=== PATIENT | female | born 1940 | race Caucasian/White ===

== ENCOUNTER 2019-08-02 04:21 | Inpatient (IN) | payer MEDICARE, OTHER ==
[~2019-08-02] VITALS: Ht 152.4 cm; Wt 66.3 kg
[~2019-08-02 04:21] MED LIST: ASPI-630 PO; BALS750C PO; CARV25TA2 PO; DOCU100C28 PO; LISI-334 PO; MULT1TAB52 PO; RANI150C PO; SIMV40TA18 PO
[2019-08-02 06:09] VITALS: BP 103/73
[2019-08-02] MEDS ORDERED: CARV6.2511 PO (06:30)
[2019-08-02] MEDS ORDERED: ACET325T9 PO (06:30)
[2019-08-02] MEDS ORDERED: guaiFENesin/CODEINE 100mg/10mg 5 ML LIQUID PO PRN (06:30)
[2019-08-02] MEDS ORDERED: FLUT16SP NS (06:30)
[2019-08-02] MEDS ORDERED: ENOX40DI SQ (06:30)
[2019-08-02] MEDS ORDERED: ASPI81TA59 PO (06:30)
[2019-08-02] MEDS ORDERED: ACETAMINOPHEN 325 MG TABLET. PO PRN (06:30)
[2019-08-02] MEDS ORDERED: MULT1TAB52 PO (06:30)
[2019-08-02] MEDS ORDERED: CETI10TA16 PO (06:30)
[2019-08-02] MEDS ORDERED: GUAI473L15 PO (06:30)
[2019-08-02] MEDS ORDERED: FAMO20TA5 PO (06:30)
--- NOTE | 2019-08-02 06:38 | EKG ---
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
--- NOTE | 2019-08-02 06:41 | NUR ---
Patient arrived at 0555 VIA ambulance. Orders received from [facility]. Reviewed patient medications.
[2019-08-02] MEDS ORDERED: ONDANSETRON PF 4 MG/2 ML VIAL. IVP PRN (06:45)
[2019-08-02] MEDS ORDERED: guaiFENesin DM 200MG/20MG 10 ML SYRUP PO PRN (07:00)
[2019-08-02 07:26] LABS: BASO % 0 % (0-3); EOS % 0 % (0-3); HEMATOCRIT 36.4 % (36.0-47.0); HEMOGLOBIN 12.5 g/dL (12.0-15.5); LYMPH # 0.9 x10^3/uL (1.0-4.8); LYMPH % 21 % (24-48); MEAN CORPUSCULAR HEMOGLOBIN 31 pg (25-35); MEAN CORPUSCULAR HGB CONC 34 g/dL (31-37); MEAN CORPUSCULAR VOLUME 91 fL (79-100); MONO # 0.5 x10^3/uL (0.0-1.1); MONO % 12 % (0-9); NEUT # 2.7 x10^3/uL (1.8-7.7); NEUT % 66 % (31-73); PLATELET COUNT 151 x10^3/uL (140-400); RED BLOOD COUNT 3.99 x10^6/uL (3.50-5.40); RED CELL DISTRIBUTION WIDTH 13.8 % (11.5-14.5); WHITE BLOOD COUNT 4.1 x10^3/uL (4.0-11.0)
[2019-08-02 07:36] LABS: CALCIUM 8.7 mg/dL (8.5-10.1); CREATININE 1.1 mg/dL (0.6-1.0); GFR 47.9; POTASSIUM 4.4 mmol/L (3.5-5.1)
[2019-08-02 07:51] VITALS: BP 100/65
[2019-08-02] MEDS ORDERED: CARVEDILOL 6.25 MG TABLET. PO SCH (08:00)
[2019-08-02] MEDS ORDERED: ASPIRIN CHEWABLE 81 MG TABLET. PO SCH ×2 (08:00→09:00)
[2019-08-02] MEDS ORDERED: ENOXAPARIN 40 MG/0.4 ML SYRINGE. SQ SCH (09:00)
[2019-08-02] MEDS ORDERED: FUROSEMIDE 20 MG/2 ML VIAL. IVP SCH (09:00)
[2019-08-02] MEDS ORDERED: HEPARIN 25,000UTS/500ML PREMIX 500 ML IV PRN (09:30)
[2019-08-02] MEDS ORDERED: HEPARIN for IV BOLUS 10,000 UNIT/10 ML VIAL. IV PRN (09:30)
--- NOTE | 2019-08-02 09:33 | PDOC2 ---
EDOUARD PERES BRANCH SERVICE ASSOCIATE 08/02/19 0933: CARDIAC CONSULT DATE OF CONSULT Date of Consult DATE: 08/02/19 TIME: 08:58 REASON FOR CONSULT Reason for Consult: Young REFERRING PHYSICIAN Referring Physician: Francisco SOURCE Source: Chart review, Patient HISTORY OF PRESENT ILLNESS HISTORY OF PRESENT ILLNESS This is a pleasant 78 yo female admitted for complains of chest pain. Initially, she was at [place] due to diarrhea. She has been having diarrhea with last episode Thursday night. She has had multiple surgeries in her intestines in the past due to chrons and she has been on Humira. She was noted with C diff and UTI and has been having fever with her last fever last night. At. [place] last night she was having chest pressure and SOA. Her troponin was checked and it was elevated. Her last C with no intervention was at [facility] over a decade ago. She has been having up and down swing in her BP high and low. She also has been having cough nonproductive so far. Activity ramirez she does stationary biking 1 to 1.5 hours daily. She is active with gardening. The last biking she did was Thursday. Prior to coming to [place] she has not been having any cardiac symptoms. No noted hx of CAD but follows up with Dr. Sandoval in due to HTN. Last echo was last yr and unknown last stress test. She takes meds for HTN, HLP, and ASA. No VTE, or bleeding hx. PAST MEDICAL HISTORY Cardiovascular: HTN, Hyperlipidemia Pulmonary: No pertinent hx CENTRAL NERVOUS SYSTEM: Other (No pertinent history) GI: Inflam bowel disease (chrons), Peptic Ulcer disease (remote) Heme/Onc: No pertinent hx, Other (chronic humira use) Hepatobiliary: No pertinent hx Psych: No pertinent hx Musculoskeletal: Osteoarthritis Infectious disease: Other (C-diff) ENT: No pertinent hx Renal/: UTI Endocrine: No pertinent hx Dermatology: No pertinent hx PAST SURGICAL HISTORY Past Surgical History: Other (multiple abdominal surgeries in 2017 with colon and bowel resection and vaginal fistula repair) FAMILY HISTORY Family History: Coronary Artery Disease (mother) SOCIAL HISTORY Smoke: No ALCOHOL: none Drugs: None Lives: with Family ALLERGIES ALLERGIES: Coded Allergies: Penicillins (Verified Allergy, Severe, Anaphylaxis, 04/04/16) iodine (Verified Allergy, Intermediate, 04/04/16) mushroom (Verified Allergy, Intermediate, 04/04/16) ROS Review of System 14 point ROS evaluated with pertinent positives noted per HPI PHYSICAL EXAM General: Alert, Oriented X3, Cooperative, No acute distress HEENT: Atraumatic, Mucous membr. moist/pink Lungs: Other (upper rhonchi) Heart: Regular rate (SR with WAP), Normal S1, Normal S2, No murmurs Abdomen: Soft, No tenderness, Other (hyperactive bowel sounds to all quads) Extremities: No cyanosis, No edema Skin: No breakdown, No significant lesion Neuro: Normal speech, Sensation intact Psych/Mental Status: Mental status NL, Mood NL MUSCULOSKELETAL: Osteoarthritic changes both hands VITALS/I&O VITALS/I&O: Vital Signs Date Time Temp Pulse Resp B/P (MAP) Pulse Ox O2 Delivery O2 Flow Rate FiO2 08/02/19 07:51 98.0 110 16 100/65 (77) 97 Room Air 98.0 LABS Lab: Laboratory Tests Test 08/02/19 06:53 White Blood Count 4.1 x10^3/uL (4.0-11.0) Red Blood Count 3.99 x10^6/uL (3.50-5.40) Hemoglobin 12.5 g/dL (12.0-15.5) Hematocrit 36.4 % (36.0-47.0) Mean Corpuscular Volume 91 fL (79-100) Mean Corpuscular Hemoglobin 31 pg (25-35) Mean Corpuscular Hemoglobin Concent 34 g/dL (31-37) Red Cell Distribution Width 13.8 % (11.5-14.5) Platelet Count 151 x10^3/uL (140-400) Neutrophils (%) (Auto) 66 % (31-73) Lymphocytes (%) (Auto) 21 % (24-48) L Monocytes (%) (Auto) 12 % (0-9) H Eosinophils (%) (Auto) 0 % (0-3) Basophils (%) (Auto) 0 % (0-3) Neutrophils # (Auto) 2.7 x10^3/uL (1.8-7.7) Lymphocytes # (Auto) 0.9 x10^3/uL (1.0-4.8) L Monocytes # (Auto) 0.5 x10^3/uL (0.0-1.1) Eosinophils # (Auto) 0.0 x10^3/uL (0.0-0.7) Basophils # (Auto) 0.0 x10^3/uL (0.0-0.2) Sodium Level 133 mmol/L (136-145) L Potassium Level 4.4 mmol/L (3.5-5.1) Chloride Level 97 mmol/L (98-107) L Carbon Dioxide Level 28 mmol/L (21-32) Anion Gap 8 (6-14) Blood Urea Nitrogen 16 mg/dL (7-20) Creatinine 1.1 mg/dL (0.6-1.0) H Estimated GFR (Cockcroft-Gault) 47.9 Glucose Level 111 mg/dL (70-99) H Calcium Level 8.7 mg/dL (8.5-10.1) Troponin I Quantitative 4.951 ng/mL (0.000-0.055) Laboratory Tests 08/02/19 06:53 Laboratory Tests 08/02/19 06:53 IMAGES IMAGES FINDINGS: Heart is normal in size. No pericardial effusion. No enlarged axillary or mediastinal lymph nodes. Evaluation of hilar lymphadenopathy is limited due to lack of IV contrast. Mild subpleural patchy opacity in the posterior segment of the right upper lobe. Trace bilateral pleural effusions. Consolidation is seen in the subpleural bilateral dependent aspect of the lung bases. Visualized noncontrast sections through the liver, spleen, pancreas, adrenals and kidneys within normal limits. No suspicious bony lesion. IMPRESSION: 1. Trace bilateral pleural effusions with associated adjacent mild consolidation which may be from passive atelectasis. 2. Mild patchy opacity in the subpleural right upper lobe, nonspecific. Follow-up CT chest in 3-4 months recommended. No evidence of interstitial lung disease. DATE: 07/31/19 1424 ASSESSMENT/PLAN ASSESSMENT/PLAN 1. Fever with UTI/Cdiff colitis with possible sepsis 2. Pneumonia vs acute bronchitis 3. Chronic immunosuppression: on Humira for chrons 4. NSTEMI: presently CP free 5. Hx of HTN: BP marginal currently 6. Prerenal azotemia: with dehydration. 7. HLP 8. Reactive sinus tach: noted with WAP morphology per tele. Potentially could have had PAFIB at [place] 9. Possible diastolic CHF Recommendations 1. ASA. Heparin drip. Hold BP meds. Pt appears compensated. Will not diurese her currently with her marginal BP and low volume. Await TTE 2. Lipids. 3. Antibiotics per PCP 4. Ischemic workup once fever free and infectious process are controlled. Consult ID. 5. DC coreg. Will resume low dose metoprolol if BP is adequate. KENDAL MENESES MD 08/02/19 0959: CARDIAC CONSULT ASSESSMENT/PLAN ASSESSMENT/PLAN Pt. seen and examined. Agree with above COMMUNICATION CENTER COORDINATOR note. NSTEMI likely secondary and Type 2 [place]. Will consider further ischemic evaluation in the form of outpt stress versus inpt cath depending on TTE results. Supportive care. Thanks EDOUARD PERES APRN Aug 02, 2019 09:33 KENDAL MENESES MD Aug 02, 2019 09:59
[2019-08-02] MEDS: IPRATRPIUM/ALBUTEROL 0.5/2.5MG 3 ML NEBU. NEB SCH ×4 (09:42→20:22)
[2019-08-02] MEDS ORDERED: POTASSIUM CHLORIDE 20 MEQ TABLET.ER. PO ONE (09:45)
[2019-08-02 10:00] LABS: CHOLESTEROL/HDL RATIO 2.1
[2019-08-02 10:03] LABS: PROTHROMBIN TIME PATIENT 12.6 SEC (11.7-14.0)
--- NOTE | 2019-08-02 10:30 | HP ---
ADMIT DATE: 08/02/2019 HISTORY OF PRESENT ILLNESS: The patient is a 78-year-old female patient who was transferred this morning from [facility] ICU where she apparently was admitted initially for sepsis and hypotension, for which she was initially started on Levophed. She was diagnosed with urinary tract infection and, in fact, her urine culture has grown gram-negative rods with a growth of more than 100,000 colony forming units/mL, although the identification and sensitivity is still pending. She was also diagnosed with C. diff colitis. She is on vancomycin orally as well as Levaquin and meropenem. She apparently went into what seemed to be atrial fibrillation with rapid ventricular response. She was hypotensive again and we checked her magnesium, was found to be low and also giving her digoxin 500 mcg and apparently that controlled her heart rate and her blood pressure has improved. According to nursing staff; however, her troponin has dramatically risen from 0.939 up to 3.974 and therefore, a decision was made to transfer her to [facility] for further evaluation, perhaps cardiac catheterization and revascularization. The patient herself denied any chest pain, did complain of chest tightness and chest pressure, shortness of breath and recurrent bouts of cough that is mostly dry, hacking that has been going on throughout the summer months and she thought that this was all related to her seasonal allergy. PAST MEDICAL HISTORY: Her past medical history is significant for hyperlipidemia, hypertension, allergic rhinitis, chronic bronchitis, Crohn's disease, history of diverticulitis, gastroesophageal reflux disease. She also had developed broken heart syndrome and she was admitted to [facility] in 2010. She has also a history of C. diff colitis as well as generalized osteoarthritis and osteoporosis. PAST SURGICAL HISTORY: Her past surgical history is significant for cholecystectomy, abdominal surgery, left breast lumpectomy, hysterectomy. She is also known to have colovaginal fistula. ALLERGIES: SHE IS ALLERGIC TO PENICILLIN, SULFA DRUGS, IODINE AND MUSHROOMS. MEDICATIONS: She was transferred to [facility] on cetirizine 10 mg once a day, meropenem 1 g IV q. 8 hourly, aspirin 325 mg once a day, Lovenox 40 mg subcutaneously once a day, levofloxacin 500 mg IV every 48 hours, acetaminophen 650 mg every 6 hours, Flonase 2 sprays to each nostril once a day, furosemide 20 mg daily, famotidine 20 mg once a day, multivitamin 1 tablet once a day, aspirin 81 mg once a day, ondansetron 4 mg every 6 hours, carvedilol 6.25 mg twice a day with meals. She was on lactobacillus rhamnosus 1 capsule twice a day, vancomycin 125 mg 4 times a day, calcium with vitamin D one tablet 3 times a day with meals. She is on DuoNeb 3 mL by nebulizer 4 times a day, balsalazide disodium 3 tablets 3 times a day, Mucinex 200 mg every 6 hours. FAMILY HISTORY: Her mother had hypertension, Crohn's disease as well as cardiovascular disease and sister with heart disease and brother with autoimmune disease. SOCIAL HISTORY: She lives with her boyfriend. She does not smoke, drink alcohol or use any recreational drugs. REVIEW OF SYSTEMS: As per history of present illness. PHYSICAL EXAMINATION: GENERAL: On arrival to [facility], she was resting slightly propped up in bed, in no apparent distress, pale, not jaundiced, cyanosis or thyromegaly. No jugular venous distention. No limb edema. VITAL SIGNS: Heart rate was 104, blood pressure was 103/73, temperature was 98.4, respiratory rate was 17 and oxygen saturation was 96% on room air. HEAD, EYES, EARS, NOSE AND THROAT: Normocephalic, atraumatic. NECK: Supple. HEART: Showed normal first and second heart sounds. No gallop or murmur. CHEST: Clear to auscultation. No crepitation or rhonchi. ABDOMEN: Distended, soft, nontender. No guarding or rigidity. No organomegaly. All hernial orifice intact. Bowel sounds normal. NEUROLOGIC: She was awake, alert, responding appropriately. All cranial nerves intact. EXTREMITIES: She moves extremities without difficulty. She ambulates without assistance or assistive devices. LABORATORY DATA: Her lab work done at [facility] showed her white cell count to be 5200, hemoglobin 13, hematocrit 38, MCV 91, and platelet count of 159,000 with normal manual differential. Her chemistry showed serum sodium 132, potassium 3.4, chloride 95, bicarbonate 27, anion gap of 10, BUN 14, creatinine 1.2, estimated GFR was 43 mL per minute. Her glucose 114, calcium was 8.4, magnesium was 1.3. Total bilirubin, AST, ALT, alkaline phosphatase were normal. Total protein was 6.2, albumin 3.1. Her troponin was 0.939 that has increased and has risen to 3.974. Her D-dimer was 1.33. Urinalysis showed the urine was yellow, cloudy with a pH of 6, specific gravity of 1.015, there was small amount of protein. The urine was negative for glucose, trace of ketones, moderate amount of blood, positive for nitrite, moderate amount of leukocyte esterase, 6-10 rbc's, more than 40 wbc's, and too many bacteria. His stool for C. diff toxins were positive. Her D-dimer was elevated, so had a pulmonary ventilation perfusion scan was read as low probability for pulmonary embolism. The CT scan of the chest without contrast showed that the patient has trace bilateral pleural effusion with associated adjacent mild consolidation, which may be from passive atelectasis. Has mild patchy opacity in the subpleural right upper lobe, nonspecific. Followup CT chest in 3-4 months is recommended. No evidence of interstitial lung disease. ASSESSMENT AND PLAN: In summary, this is a 78-year-old female patient who was transferred from [facility] with non-ST segment elevation myocardial infarction. Her troponin has risen dramatically from 0.9-4.95 this morning. She also had an episode of what seemed to be atrial fibrillation with rapid ventricular response that has responded to digoxin. Her heart rate is down to 102, blood pressure is much better now at 105 compared to 80 systolic while at [facility]. She was treated for urinary tract infection with growth of more than 100,000 colony forming units per mL of gram-negative rods. The identification and sensitivity is still pending. She also has questionable pneumonia as well as Clostridium difficile colitis, for which she is on oral vancomycin. 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 Meanwhile, we will continue with all her medication that include her cetirizine 10 mg once a day, Lovenox 40 mg subcutaneously daily, simvastatin 40 mg at bedtime, carvedilol 6.25 mg twice a day, lisinopril need to be discontinued, aspirin 81 mg once a day, Tylenol 650 mg every 6 hours. She also has Flonase 2 sprays to each nostril once a day, Colace 100 mg once a day, famotidine 20 mg at bedtime, balsalazide 750 mg 3 times a day, multivitamin 1 tablet once a day. ANÍBAL HELLER MD DR: BEBETO/alisa JOB#: [id number] / [id number]
[2019-08-02] MEDS: LACTOBACILLUS RHAMNOSUS GG 1 CAPSULE. PO SCH ×2 (10:44→21:18)
[2019-08-02] MEDS: VANCOMYCIN 125 MG/2.5 ML ORAL SOLUTION. PO SCH ×4 (10:44→21:18)
[2019-08-02] MEDS: CETIRIZINE HCL 10 MG TABLET. PO SCH (10:45)
[2019-08-02] MEDS: MULTIVITAMIN with MINERAL TABLET. PO SCH (10:45)
[2019-08-02] MEDS: FLUTICASONE 50MCG/NASAL SPRAY 16GM BOTTLE. NS SCH (10:45)
--- NOTE | 2019-08-02 10:46 | PDOC ---
Infectious Disease Note Vital Sign Vital Signs Vital Signs Date Time Temp Pulse Resp B/P (MAP) Pulse Ox O2 Delivery O2 Flow Rate FiO2 08/02/19 09:42 94 Room Air 08/02/19 07:51 98.0 110 16 100/65 (77) 98.0 Labs Lab Laboratory Tests Test 08/02/19 06:53 White Blood Count 4.1 x10^3/uL (4.0-11.0) Red Blood Count 3.99 x10^6/uL (3.50-5.40) Hemoglobin 12.5 g/dL (12.0-15.5) Hematocrit 36.4 % (36.0-47.0) Mean Corpuscular Volume 91 fL (79-100) Mean Corpuscular Hemoglobin 31 pg (25-35) Mean Corpuscular Hemoglobin Concent 34 g/dL (31-37) Red Cell Distribution Width 13.8 % (11.5-14.5) Platelet Count 151 x10^3/uL (140-400) Neutrophils (%) (Auto) 66 % (31-73) Lymphocytes (%) (Auto) 21 % (24-48) Monocytes (%) (Auto) 12 % (0-9) Eosinophils (%) (Auto) 0 % (0-3) Basophils (%) (Auto) 0 % (0-3) Neutrophils # (Auto) 2.7 x10^3/uL (1.8-7.7) Lymphocytes # (Auto) 0.9 x10^3/uL (1.0-4.8) Monocytes # (Auto) 0.5 x10^3/uL (0.0-1.1) Eosinophils # (Auto) 0.0 x10^3/uL (0.0-0.7) Basophils # (Auto) 0.0 x10^3/uL (0.0-0.2) Sodium Level 133 mmol/L (136-145) Potassium Level 4.4 mmol/L (3.5-5.1) Chloride Level 97 mmol/L (98-107) Carbon Dioxide Level 28 mmol/L (21-32) Anion Gap 8 (6-14) Blood Urea Nitrogen 16 mg/dL (7-20) Creatinine 1.1 mg/dL (0.6-1.0) Estimated GFR (Cockcroft-Gault) 47.9 Glucose Level 111 mg/dL (70-99) Calcium Level 8.7 mg/dL (8.5-10.1) Magnesium Level 1.8 mg/dL (1.8-2.4) Troponin I Quantitative 4.951 ng/mL (0.000-0.055) Triglycerides Level 87 mg/dL (0-150) Cholesterol Level 116 mg/dL (0-200) LDL Cholesterol, Calculated 45 mg/dL (0-100) VLDL Cholesterol, Calculated 17 mg/dL (0-40) Non-HDL Cholesterol Calculated 62 mg/dL (0-129) HDL Cholesterol 54 mg/dL (40-60) Cholesterol/HDL Ratio 2.1 Objective Assessment UTI - POA 07/30 GNR PCN allergy has tolerated Amox C-diff - last episode 5 years ago Immunosuppression on Humira for crohns. last dose 1 week ago Elevated Troponin - NSTEMI ? Bronchitis - has h/o chronic bronchitis Plan Plan of Care D/w Lab Sandra this am Urine still only GNR/ Sputum just received this am For now cont po Vanc Cont Meropenem try to taper abx shortly F/u labs and cults D/w nursing D/w [facility] records reviewed Thank you # [id number] JANET MONTOYA MD Aug 02, 2019 10:46
[2019-08-02 11:00] VITALS: BP 112/73
[2019-08-02] MEDS: MEROPENEM 1 GM in IV NORMAL SALINE 100ML 100 ML IV SCH ×2 (13:06→21:19)
--- NOTE | 2019-08-02 14:08 | CONS ---
DATE OF CONSULTATION: 08/02/2019 LOCATION: The patient's room 260. REQUESTING PHYSICIAN: Pattie Keyes of Cardiology REASON FOR CONSULTATION: UTI, C. diff, possible pneumonia, immunosuppression, and non-STEMI. HISTORY OF PRESENT ILLNESS: The patient is a pleasant 78-year-old female with a known history of Crohn disease for which she receives Humira injections with her last dose being approximately a week or so ago. She states this past , approximately the or so of July, she began to feel kind of weak and tired. She states she slept most of the day on Thursday and on Thursday, she felt like she was getting a cold, so she took some Mucinex DM. She went to sleep that evening. Apparently, she developed fever, lightheadedness and sweats. She was brought to [facility] Emergency Room. Urinalysis was collected and was consistent with urinary tract infection. White blood cell count on arrival was 5.6. She had 75% neutrophils. Creatinine was 1.3. She underwent a chest x-ray, which showed suggestion of mild atypical/viral infection. CT scan of the head was performed, showed no intracranial abnormality. She was given doses of levofloxacin, IV vancomycin and meropenem. She then had loose stools, which were checked and reported positive for C. diff. She was placed on oral vancomycin. At [facility], she continued to have chest pressure, shortness of air, her troponin was elevated and she was subsequently transferred to [facility]. Currently, she is on meropenem IV as well as oral vancomycin. Her cultures from the urine are showing gram-negative janice. Blood cultures thus far are negative. PAST MEDICAL HISTORY: Positive for hypertension, hyperlipidemia, Crohn disease, peptic ulcer disease, osteoarthritis, history of recurrent urinary tract infections in the past, history of previous C. diff colitis approximately 5 years ago. She also has allergic rhinitis, chronic bronchitis, history of diverticulitis and osteoarthritis. PAST SURGICAL HISTORY: Positive for cholecystectomy, bowel surgery, vaginal fistula, left breast benign lumpectomy, hysterectomy, previous heart caths and hernia repair. REVIEW OF SYSTEMS: Otherwise negative except for mentioned above. ALLERGIES: LISTED PENICILLIN WHICH CAUSED LOCAL REACTION, HER LEFT ARM SWELLING, BUT SHE HAS TOLERATED AMOXICILLIN. IODINE AND MUSHROOM ARE ALSO LISTED. SOCIAL HISTORY: No tobacco or alcohol. She is , has a very supportive family. FAMILY HISTORY: Mother had hypertension, Crohn disease, cardiovascular disease, sister had heart disease and brother had autoimmune type disease. CURRENT MEDICATIONS: Include heparin drip, meropenem 1 gram q.8, aspirin, Zyrtec, Pepcid, fluconazole, guaifenesin DM, albuterol, Atrovent, lactobacillus, multivitamin and p.o. vancomycin. PHYSICAL EXAMINATION: VITAL SIGNS: She is afebrile, temperature 98, pulse 110, respirations 16, blood pressure 100/65, satting 94% on room air. CONSTITUTIONAL: She is sitting upright in bed. She is cooperative. She is in no acute distress. HEENT: Pupils are equal and reactive. She has normal conjunctivae and oral cavity, which was clear. NECK: Supple. Without JVD. LUNGS: Clear to auscultation. HEART: S1, S2. ABDOMEN: Soft, mildly distended. Positive bowel sounds. No guarding, no rebound. EXTREMITIES: Without clubbing, cyanosis or gross edema. NEUROLOGIC: She is alert and oriented. PSYCHIATRIC: Affect is appropriate. LABORATORY DATA: White count 4.1, hemoglobin 12.5, platelets of 151, neutrophils 66%, lymphs are 21. Creatinine was 1.1, glucose of 111. IMPRESSION: 1. Urinary tract infection present on admission and 5 gram-negative rods. 2. PENICILLIN ALLERGY, has tolerated amoxicillin. 3. Clostridium difficile, last episode 5 years ago. 4. Immunosuppression, on Humira for Crohn's; last dose approximately 1 week ago. 5. Elevated troponin with non-ST elevation myocardial infarction. 6. Questionable bronchitis, has history of chronic bronchitis. RECOMMENDATIONS: I did call [facility] this morning. Urine reported now as a gram-negative janice only still. Sputum had been received by them, but just this morning. For now, we will continue p.o. vancomycin. We will continue meropenem. Try to taper antibiotics shortly. Follow up labs. Follow up cultures. This was discussed with the family. I did review [facility] records. Thank you for allowing me to see and participate in the patient's care. If you have further questions, please do not hesitate to contact me. JANET MONTOYA MD DR: YUNIER/alisa JOB#: [id number] / [id number]
--- NOTE | 2019-08-02 14:37 | NUR ---
SS following for discharge planning. SS reviewed pt chart. Pt is from home and is currently on room air. SS will continue to follow for discharge planning.
[2019-08-02 15:21] VITALS: BP 98/68
--- NOTE | 2019-08-02 17:09 | CARD ---
MR#: [id number] Date of Study: 08/02/2019 Ordering Physician: EDOUARD PERES, Referring Physician: EDOUARD PERES, Tech: Amaris Moreau APPROVED REPORT EXAM: Two-dimensional and M-mode echocardiogram with Doppler and color Doppler. Other Information Quality : AverageHR: 120bpm INDICATION Atrial Fibrillation Non STEMI RISK FACTORS Hypertension Hyperlipidemia 2D DIMENSIONS RVDd2.7 (2.9-3.5cm)Left Atrium(2D)3.5 (1.6-4.0cm) IVSd0.9 (0.7-1.1cm)Aortic Root(2D)3.4 (2.0-3.7cm) LVDd4.5 (3.9-5.9cm)LVOT Diameter2.1 (1.8-2.4cm) PWd1.0 (0.7-1.1cm)LVDs2.7 (2.5-4.0cm) FS (%) 39.0 %SV63.3 ml LVEF(%)69.6 (>50%) Aortic Valve AoV Peak Dustin.114.4cm/sAoV VTI14.9cm AO Peak GR.5.2mmHgLVOT VTI 11.40cm AO Mean GR.3mmHgAI P 1/2 [id number] Mitral Valve MV E Lexpgxtb53.4cm/sMV DECEL QAGW48ka MV A Ycspifzd67.9cm/sE/A Ratio1.4 TDI Lateral E' P. V6.31cm/sMedial E' P. V5.34cm/s E/Lateral E'13.2E/Medial E'15.6 Tricuspid Valve TR P. Yihjqfdr843sp/sRAP UNBQBGRS0gjFz TR Peak Gr.98vhQmBFJL94gmTs Pulmonary Vein S1 Sdyixmbj64.5cm/sS2 Xdwcawql29.51cm/s D2 Ewlcodji30.5cm/sPVa [id number] LEFT VENTRICLE The left ventricle is normal size. There is borderline concentric left ventricular hypertrophy. The s ystolic function is severely impaired. The Ejection Fraction is 30%. The distal 1/2 of the LV is mary rely hypokinetic with basal hyperkinesis suggestive of an overall stress induced (Takatsubo) cardiomy opathy. Transmitral Doppler flow pattern is Grade II-pseudonormal filling dynamics. RIGHT VENTRICLE The right ventricle is normal size. There is normal right ventricular wall thickness. The right ventr icular systolic function is normal. ATRIA The left atrium size is normal. The right atrium size is normal. The interatrial septum is intact wit h no evidence for an atrial septal defect or patent foramen ovale as noted on 2-D or Doppler imaging. AORTIC VALVE The aortic valve is thickened but opens well. Doppler and Color Flow revealed mild aortic regurgitati on. There is no significant aortic valvular stenosis. MITRAL VALVE The mitral valve is normal in structure and function. There is no evidence of mitral valve prolapse. There is no mitral valve stenosis. Doppler and Color-flow revealed trace mitral regurgitation. TRICUSPID VALVE The tricuspid valve is normal in structure and function. Doppler and Color Flow revealed mild to mode rate tricuspid regurgitation with an estimated PAP of 46 mmHg. There is no tricuspid valve stenosis. PULMONIC VALVE The pulmonic valve is not well visualized. Doppler and Color Flow revealed no pulmonic valvular regur gitation. There is no pulmonic valvular stenosis. GREAT VESSELS The aortic root is normal in size. The IVC is normal in size and collapses >50% with inspiration. PERICARDIAL EFFUSION There is a trace pericardial effusion. Critical Notification Critical Value: No <Conclusion> The systolic function is severely impaired. The Ejection Fraction is 30%. The distal 1/2 of the LV is severely hypokinetic with basal hyperkinesis suggestive of an overall str ess induced (Takatsubo) cardiomyopathy. Doppler and Color Flow revealed mild to moderate tricuspid regurgitation with an estimated PAP of 46 mmHg. There is a trace pericardial effusion. Signed by : Esau Campos, Electronically Approved : 08/02/2019 17:08:43
[2019-08-02 19:00] VITALS: BP 110/81
[2019-08-02] MEDS: FAMOTIDINE 20 MG TABLET. PO SCH (21:18)
[2019-08-02 23:00] VITALS: BP 104/66
[2019-08-03 03:00] VITALS: BP 104/76
[2019-08-03] MEDS: MEROPENEM 1 GM in IV NORMAL SALINE 100ML 100 ML IV SCH (05:43)
[2019-08-03 06:10] LABS: CALCIUM 8.3 mg/dL (8.5-10.1); GFR 53.5; POTASSIUM 3.5 mmol/L (3.5-5.1)
[2019-08-03 07:00] VITALS: BP 106/69
--- NOTE | 2019-08-03 07:07 | PDOC ---
Infectious Disease Note Subjective Subjective Some better. Slept well. Did not feel fever Still a little weak. Stools ok No Rash and cough is ok ROS ROS o/w neg Vital Sign Vital Signs Vital Signs Date Time Temp Pulse Resp B/P (MAP) Pulse Ox O2 Delivery O2 Flow Rate FiO2 08/03/19 03:00 99.5 122 20 104/76 (85) 90 Room Air 99.5 Physical Exam PHYSICAL EXAM CONSTITUTIONAL: She is sitting upright on commode She is cooperative. She is in no acute distress. looks better HEENT: Pupils are equal and reactive. She has normal conjunctivae and oral cavity, which was clear. NECK: Supple. Without JVD. LUNGS: Clear to auscultation. HEART: S1, S2. ABDOMEN: Soft, mildly distended. Positive bowel sounds. No guarding, no rebound. EXTREMITIES: Without clubbing, cyanosis or gross edema. NEUROLOGIC: She is alert and oriented. PSYCHIATRIC: Affect is appropriate. Labs Lab Laboratory Tests Test 08/02/19 16:45 08/02/19 23:10 08/03/19 05:45 Heparin Anti-Xa Act, Unfractionated 0.56 IU/mL (0.30-0.70) 0.61 IU/mL (0.30-0.70) 0.55 IU/mL (0.30-0.70) Sodium Level 130 mmol/L (136-145) Potassium Level 3.5 mmol/L (3.5-5.1) Chloride Level 95 mmol/L (98-107) Carbon Dioxide Level 25 mmol/L (21-32) Anion Gap 10 (6-14) Blood Urea Nitrogen 16 mg/dL (7-20) Creatinine 1.0 mg/dL (0.6-1.0) Estimated GFR (Cockcroft-Gault) 53.5 Glucose Level 137 mg/dL (70-99) Calcium Level 8.3 mg/dL (8.5-10.1) Objective Assessment Fever times one - looks better UTI - POA 07/30 Pansensitive Ecoli PCN allergy has tolerated Amox C-diff - last episode 5 years ago Immunosuppression on Humira for crohns. last dose 1 week ago Elevated Troponin - NSTEMI ? Bronchitis - has h/o chronic bronchitis Plan Plan of Care If fever persists will broaden coverage but hopefully she is defervesing as she looks better D/w Lab Sandra this am Urine with Ecoli that is pansensitive Sputum just received am 10 and pending For now cont po Vanc Discont Meropenem - taper to cefepime to also cover lung f/u sputum cults F/u labs and cults D/w nursing JANET MONTOYA MD Aug 03, 2019 07:07
[2019-08-03] MEDS: IPRATRPIUM/ALBUTEROL 0.5/2.5MG 3 ML NEBU. NEB SCH ×4 (07:53→20:07)
[2019-08-03] MEDS: fentaNYL PF VIAL 100 MCG/2 ML VIAL IVP PRN ×2 (08:35→12:45)
[2019-08-03] MEDS: FLUTICASONE 50MCG/NASAL SPRAY 16GM BOTTLE. NS SCH (08:35)
[2019-08-03] MEDS: VANCOMYCIN 125 MG/2.5 ML ORAL SOLUTION. PO SCH ×4 (08:36→21:02)
--- NOTE | 2019-08-03 08:50 | PN ---
DATE: 08/03/2019 SUBJECTIVE: The patient is resting, slightly propped up, complaining of severe right lower quadrant pain and was complaining of fever and diaphoresis. When I examined her, she looked pale, not jaundice, cyanosis thyromegaly. No jugular venous distention. No limb edema. OBJECTIVE: VITAL SIGNS: Her heart rate was 112, blood pressure was 106/69, temperature was 97.9, respiratory rate was 18 and oxygen saturation was 91%. HEAD, EYES, EARS, NOSE AND THROAT: Showed normocephalic, atraumatic. NECK: Supple. HEART: Showed normal first and second heart sounds. No gallop or murmur. CHEST: Clear to auscultation. No crepitation or rhonchi. ABDOMEN: Distended, soft. Tenderness mostly in the right lower quadrant. There is no guarding or rigidity. No organomegaly. All hernial orifices intact. Bowel sounds normal. NEUROLOGIC: She is awake, alert, responding appropriately. All cranial nerves intact. She moves extremities without difficulty, though she is mostly bedbound. Her intake and output were incompletely recorded. LABORATORY DATA: Her lab work this morning showed a serum sodium 130, potassium 3.5, chloride 95, bicarbonate 25, anion gap of 10, BUN 16, creatinine 1, estimated GFR was 54 mL per minute. Her glucose 137, calcium was 8.8, magnesium was 1.8. Her white cell count was 4000, hemoglobin 12, hematocrit 36, MCV 91, and platelet count of 151,000. She continues to be on heparin drip. Apparently, she had an echocardiogram done, which showed that her left ventricular systolic function is severely impaired, ejection fraction is 30%, the distal half of the left ventricle is severely hypokinetic with basal hypokinesis suggestive of overall stress-induced Takotsubo cardiomyopathy. Doppler and color flow revealed [id number] tricuspid regurgitation and estimated pulmonary artery pressure of 46 mmHg. There was a trace of pericardial effusion. Surprisingly, she apparently had had similar episode of Takotsubo cardiomyopathy [facility]. ASSESSMENT: 1. The patient has urinary tract infection with growth of Gram-negative rods. 2. Recurrent bouts of diarrhea and she was found to be positive for Clostridium difficile toxins for which she is on oral vancomycin. Her CT scan of the chest showed a possible left lower lobe infiltrate or consolidation. She has obviously what seems to be non-ST segment elevation myocardial infarction as her troponin has risen up to 4.9, although she has not complained of any chest pain. Other medical problems include hypertension, hyperlipidemia, diastolic congestive heart failure, possible paroxysmal atrial fibrillation that has responded to IV digoxin and this morning, she is complaining of severe right lower quadrant pain, raising the possibility of appendicitis, which I have arranged for her to have CT scan of the abdomen and pelvis without contrast as she is ALLERGIC TO IODINE. Meanwhile, we will continue with heparin drip, continue with IV antibiotic as recommended by Infectious Disease specialist. ANÍBAL HELLER MD DR: BEBETO/alisa JOB#: [id number] / [id number]
--- NOTE | 2019-08-03 10:48 | RAD ---
Axial noncontrast CT imaging of the abdomen and pelvis was obtained without intravenous contrast. Coronal and sagittal reformats are available. INDICATION: Right lower quadrant pain with fever and diaphoresis. FINDINGS: There is a small right basilar effusion. There is bilateral right greater than left interstitial opacity with reticular interstitial edema this changes. Limited evaluation of the solid organs. Patient is status post cholecystectomy. The noncontrasted liver, adrenals, kidneys and spleen are unremarkable. Pancreas is grossly normal without contrast. No hydronephrosis or hydroureter is identified. Within the right flank there is a poorly delineated fluid collection measuring approximately 3.0 x 2.7 cm. There is a fluid/fluid level within this collection. Stomach, small and large bowel are nondistended. There is a moderate amount of fecal material within the cecum. No free air or fluid. Abdominal aorta is nonaneurysmal. Bony structures are within normal limits. There is degenerative change of the lumbar spine. IMPRESSION: 1. Focal poorly defined fluid collection without intravenous contrast in the right iliopsoas muscle which does contain a hematocrit level suggesting hematoma. There is mild surrounding inflammation which may be posttraumatic or reactive to secondary infection. 2. Bilateral interstitial opacities may be infectious or posttraumatic. There is a trace right basilar effusion as well. Electronically signed by: Foreign Lowe MD (08/03/2019 10:45 AM) [id number]
[2019-08-03] MEDS: CEFEPIME HCL IV Push 1 GM VIAL. IVP SCH ×3 (10:51→21:02)
[2019-08-03] MEDS: LACTOBACILLUS RHAMNOSUS GG 1 CAPSULE. PO SCH ×2 (10:52→21:02)
[2019-08-03] MEDS: MULTIVITAMIN with MINERAL TABLET. PO SCH (10:52)
[2019-08-03] MEDS: ASPIRIN ENTERIC COATED 81 MG TABLET.DR. PO SCH (10:52)
[2019-08-03] MEDS: CETIRIZINE HCL 10 MG TABLET. PO SCH (10:52)
[2019-08-03 11:12] VITALS: BP 97/64
[2019-08-03] MEDS ORDERED: DIGOXIN IV 500 MCG/2 ML AMPUL. IV ONE (12:15)
--- NOTE | 2019-08-03 12:21 | PDOC ---
EDOUARD PERES ORGAN RECOVERY COORDINATOR 08/03/19 1221: CARDIO Progress Notes Date and Time Date of Service 08/03/2019 Time of Evaluation 1210 Subjective Subjective: No Chest Pain, No shortness of breath, No Palpitations, Other (complains of right hip pain) Vitals Vitals Vital Signs Date Time Temp Pulse Resp B/P (MAP) Pulse Ox O2 Delivery O2 Flow Rate FiO2 08/03/19 11:12 98.3 130 20 97/64 (75) 94 Room Air 98.3 Weight Weight [ ] Input and Output Intake and Output Intake and Output 08/03/19 07:00 Intake Total 630 ml Output Total 300 ml Balance 330 ml Intake Oral 630 ml Output Urine Total 300 ml # Voids 8 # Bowel Movements 6 Laboratory Labs Laboratory Tests Test 08/02/19 16:45 08/02/19 23:10 08/03/19 05:45 Heparin Anti-Xa Act, Unfractionated 0.56 IU/mL (0.30-0.70) 0.61 IU/mL (0.30-0.70) 0.55 IU/mL (0.30-0.70) Sodium Level 130 mmol/L (136-145) Potassium Level 3.5 mmol/L (3.5-5.1) Chloride Level 95 mmol/L (98-107) Carbon Dioxide Level 25 mmol/L (21-32) Anion Gap 10 (6-14) Blood Urea Nitrogen 16 mg/dL (7-20) Creatinine 1.0 mg/dL (0.6-1.0) Estimated GFR (Cockcroft-Gault) 53.5 Glucose Level 137 mg/dL (70-99) Calcium Level 8.3 mg/dL (8.5-10.1) Physical Exam HEENT: Neck Supple W Full Motion Chest: Symmetric LUNGS: Clear to Auscultation Heart: irregularly irregular (burst of AFIB RVR) Abdomen: Soft N/T Extremities: No Edema, No Calf Tenderness Neurology: alert, oriented, follow commands Assessment Assessment 1. Fever with UTI/Cdiff colitis with possible sepsis: had fever last night again 2. Acute bronchitis vs pneumonia 3. Chronic immunosuppression: on Humira for chrons 4. Right hip pain: possible spontaneous right iliopsoas muscle hematoma 5. NSTEMI: presently CP free, peaked trop at 4.9. 6. Hx of HTN: BP remains marginal but stable 7. Prerenal azotemia: better 8. Cardiomyopathy: EF at 30% with WMA. Appears compensated 9. HLP 10. PAFIB: AFIB RVR episodes. currently SR. Recommendations 1. ASA.. Will stop heparin with possible hematoma development. Check CBC Consider ortho consult 2. Antibiotics per ID 4. Await cultures and delineation of her right hip pain. Once fever free and the latter then will consider for ischemic workup in the next 24-48 hours. 5. Dig x1. Will start metoprolol pending BP trend. KENDAL MENESES MD 08/04/19 2222: CARDIO Progress Notes Plan Plan Late entry for 08/03/2019 Pt. seen and examined. Agree with above LICSW note. 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 Medical therapy for now and consider outpt cath. Discussed previously with patient and her family. EDOUARD PERES APRN Aug 03, 2019 12:21 KENDAL MENESES MD Aug 04, 2019 22:22
[2019-08-03] MEDS: METOPROLOL TART IMMED RELEASE 25 MG TABLET. PO SCH ×3 (12:44→21:03)
[2019-08-03] MEDS ORDERED: MICAFUNGIN 100 MG in IV DEXTROSE 5% 100ML 100 ML IV SCH (13:00)
[2019-08-03] MEDS: metroNIDAZOLE 500 MG TABLET PO SCH ×2 (13:43→21:03)
[2019-08-03 14:49] VITALS: BP 99/77
[2019-08-03 16:06] LABS: HEMATOCRIT 36.3 % (36.0-47.0); HEMOGLOBIN 12.6 g/dL (12.0-15.5); RED BLOOD COUNT 3.99 x10^6/uL (3.50-5.40); RED CELL DISTRIBUTION WIDTH 14.2 % (11.5-14.5); WHITE BLOOD COUNT 6.9 x10^3/uL (4.0-11.0)
[2019-08-03] MEDS: oxyCODONE IR 5 MG TABLET PO PRN (17:18)
[2019-08-03 19:30] VITALS: BP 99/67
[2019-08-03] MEDS: FAMOTIDINE 20 MG TABLET. PO SCH (21:02)
[2019-08-03 22:18] VITALS: BP 94/62
[2019-08-04] VITALS (7 sets, daily range): BP systolic 86–106; BP diastolic 61–68
[2019-08-04] MEDS: metroNIDAZOLE 500 MG TABLET PO SCH (06:06)
[2019-08-04] MEDS: CEFEPIME HCL IV Push 1 GM VIAL. IVP SCH ×4 (06:06→21:20)
[2019-08-04 06:07] LABS: BASO % 0 % (0-3); EOS % 0 % (0-3); HEMATOCRIT 32.4 % (36.0-47.0); HEMOGLOBIN 11.5 g/dL (12.0-15.5); LYMPH % 21 % (24-48); MEAN CORPUSCULAR HEMOGLOBIN 32 pg (25-35); MEAN CORPUSCULAR HGB CONC 35 g/dL (31-37); MEAN CORPUSCULAR VOLUME 90 fL (79-100); MONO # 0.5 x10^3/uL (0.0-1.1); MONO % 11 % (0-9); NEUT % 68 % (31-73); PLATELET COUNT 122 x10^3/uL (140-400); RED BLOOD COUNT 3.61 x10^6/uL (3.50-5.40); WHITE BLOOD COUNT 4.5 x10^3/uL (4.0-11.0)
[2019-08-04 06:19] LABS: ALBUMIN 2.8 g/dL (3.4-5.0); ALBUMIN/GLOBULIN RATIO 0.9 (1.0-1.7); CREATININE 0.8 mg/dL (0.6-1.0); GFR 69.2; POTASSIUM 3.5 mmol/L (3.5-5.1); TOTAL BILIRUBIN 0.8 mg/dL (0.2-1.0); TOTAL PROTEIN 5.9 g/dL (6.4-8.2)
--- NOTE | 2019-08-04 07:24 | PDOC ---
Infectious Disease Note Subjective Subjective Some better yet. Slept well again. Did not feel fever Hip is feeling better Less weak. Stools forming No Rash and cough is ok and improving ROS ROS o/w neg Vital Sign Vital Signs Vital Signs Date Time Temp Pulse Resp B/P (MAP) Pulse Ox O2 Delivery O2 Flow Rate FiO2 08/04/19 03:37 101 20 106/66 (79) 95 Room Air 08/03/19 22:18 99.0 99.0 Physical Exam PHYSICAL EXAM CONSTITUTIONAL: She is in bed and looks well She is cooperative. She is in no acute distress. HEENT: Pupils are equal and reactive. She has normal conjunctivae and oral cavity, which was clear. NECK: Supple. Without JVD. LUNGS: Clear to auscultation. but did cough some HEART: S1, S2. ABDOMEN: Soft, mildly distended. Positive bowel sounds. No guarding, no rebound. EXTREMITIES: Without clubbing, cyanosis or gross edema. NEUROLOGIC: She is alert and oriented. PSYCHIATRIC: Affect is appropriate. Labs Lab Laboratory Tests Test 08/03/19 13:15 08/04/19 05:30 Heparin Anti-Xa Act, Unfractionated 0.36 IU/mL (0.30-0.70) < 0.10 IU/mL (0.30-0.70) White Blood Count 4.5 x10^3/uL (4.0-11.0) Red Blood Count 3.61 x10^6/uL (3.50-5.40) Hemoglobin 11.5 g/dL (12.0-15.5) Hematocrit 32.4 % (36.0-47.0) Mean Corpuscular Volume 90 fL (79-100) Mean Corpuscular Hemoglobin 32 pg (25-35) Mean Corpuscular Hemoglobin Concent 35 g/dL (31-37) Red Cell Distribution Width 14.0 % (11.5-14.5) Platelet Count 122 x10^3/uL (140-400) Neutrophils (%) (Auto) 68 % (31-73) Lymphocytes (%) (Auto) 21 % (24-48) Monocytes (%) (Auto) 11 % (0-9) Eosinophils (%) (Auto) 0 % (0-3) Basophils (%) (Auto) 0 % (0-3) Neutrophils # (Auto) 3.0 x10^3/uL (1.8-7.7) Lymphocytes # (Auto) 1.0 x10^3/uL (1.0-4.8) Monocytes # (Auto) 0.5 x10^3/uL (0.0-1.1) Eosinophils # (Auto) 0.0 x10^3/uL (0.0-0.7) Basophils # (Auto) 0.0 x10^3/uL (0.0-0.2) Sodium Level 131 mmol/L (136-145) Potassium Level 3.5 mmol/L (3.5-5.1) Chloride Level 95 mmol/L (98-107) Carbon Dioxide Level 27 mmol/L (21-32) Anion Gap 9 (6-14) Blood Urea Nitrogen 16 mg/dL (7-20) Creatinine 0.8 mg/dL (0.6-1.0) Estimated GFR (Cockcroft-Gault) 69.2 BUN/Creatinine Ratio 20 (6-20) Glucose Level 120 mg/dL (70-99) Calcium Level 8.0 mg/dL (8.5-10.1) Total Bilirubin 0.8 mg/dL (0.2-1.0) Aspartate Amino Transf (AST/SGOT) 69 U/L (15-37) Alanine Aminotransferase (ALT/SGPT) 16 U/L (14-59) Alkaline Phosphatase 54 U/L (46-116) Total Protein 5.9 g/dL (6.4-8.2) Albumin 2.8 g/dL (3.4-5.0) Albumin/Globulin Ratio 0.9 (1.0-1.7) Micro CT IMPRESSION: 1. Focal poorly defined fluid collection without intravenous contrast in the right iliopsoas muscle which does contain a hematocrit level suggesting hematoma. There is mild surrounding inflammation which may be posttraumatic or reactive to secondary infection. 2. Bilateral interstitial opacities may be infectious or posttraumatic. There is a trace right basilar effusion as well. Objective Assessment Fever - looks better. ? hematoma ? hematoma in right iliopsoas - had acute worsening pain 08/03 better today UTI - POA 07/30 Pansensitive Ecoli PCN allergy has tolerated Amox C-diff - last episode 5 years ago Immunosuppression on Humira for crohns. last dose 1 week ago Elevated Troponin - NSTEMI ? Bronchitis - has h/o chronic bronchitis Plan Plan of Care D/w Lab Sandra this am sputum with normal merna Sputum just received am 08/02 and pending For now cont po Vanc Cont cefepime to also cover lung . Added Flagyl and Micafungin 08/03 for lung and right hip but given neg sputum will d/c If remains AF could change to po for discharge 08/05 F/u labs and cults D/w nursing JANET MONTOYA MD Aug 04, 2019 07:24
--- NOTE | 2019-08-04 08:34 | PN ---
DATE: 08/04/2019 SUBJECTIVE: The patient is resting, slightly propped up in bed, in no apparent distress, awake, alert. Her right lower quadrant pain is much improved. She did have a CT scan of the abdomen with oral contrast, which showed that the patient has right iliopsoas hematoma; and therefore, her heparin was discontinued. She stated that she has slept very well, has had no further episodes of cough and was able to get out of the bed to bedside commode without any difficulty. PHYSICAL EXAMINATION: GENERAL: When I examined her this morning, she looked pale, but no jaundice, cyanosis or thyromegaly. No jugular venous distention. No limb edema. VITAL SIGNS: Her heart rate was 93, blood pressure was 99/65, temperature was 98.5, respiratory rate was 20, and oxygen saturation was 95% on room air. HEAD, EYES, EARS, NOSE AND THROAT: Showed normocephalic, atraumatic. NECK: Supple. HEART: Showed normal first and second heart sounds. No gallop or murmur. CHEST: Clear to auscultation. No crepitation or rhonchi. ABDOMEN: Nondistended, soft, tenderness mostly in the right lower quadrant. No guarding or rigidity. No organomegaly. All hernial orifice intact. Bowel sounds normal. NEUROLOGIC: She is awake, alert, responding appropriately. All cranial nerves intact. She moves all extremities without difficulty. Her intake over the last 24 hours was 613, output was 300. LABORATORY DATA: As of this morning, her serum sodium was 131, potassium 3.5, chloride 95, bicarbonate 27, anion gap of 9, BUN 16, creatinine 0.8. Her glucose was 120, calcium was 8. Total bilirubin, AST, ALT, alkaline phosphatase were normal. Total protein was 5.9, albumin was 2.8. Her white cell count was 4500, hemoglobin 11.5, hematocrit 32, MCV 90 and platelet count of 122,000. Her prothrombin time and INR are within normal limits. ASSESSMENT: 1. The patient has fever with urinary tract infection, Clostridium difficile colitis and possible sepsis. 2. Acute bronchitis versus pneumonia. 3. Chronic immunosuppressive therapy, on Humira for Crohn's disease. 4. Right groin pain due to spontaneous right iliopsoas muscle hematoma. 5. Lng-RN-ctrfhbc elevation and presently chest pain free. Her troponin has peaked up to 4.9. 6. Hypertension; however, her blood pressure is borderline hypertensive. 7. Cardiomyopathy, ejection fraction of 30%. 8. Hyperlipidemia. 9. Paroxysmal atrial fibrillation with episodes of rapid ventricular response. She is currently in sinus rhythm. PLAN: Her heparin was discontinued. She continues to be on IV antibiotic. She did grow E. coli from her urine culture. Given that she has bleeding in her right iliopsoas, I am not sure whether cardiac catheterization will be pursued. She also has UTI and C. diff and ischemic workup was postponed for the next 24-48 hours. ANÍBAL HELLER MD DR: BEBETO/alisa JOB#: [id number] / [id number]
[2019-08-04] MEDS: LACTOBACILLUS RHAMNOSUS GG 1 CAPSULE. PO SCH ×2 (08:40→21:20)
[2019-08-04] MEDS: MULTIVITAMIN with MINERAL TABLET. PO SCH (08:40)
[2019-08-04] MEDS: ASPIRIN ENTERIC COATED 81 MG TABLET.DR. PO SCH (08:40)
[2019-08-04] MEDS: CETIRIZINE HCL 10 MG TABLET. PO SCH (08:40)
[2019-08-04] MEDS: METOPROLOL TART IMMED RELEASE 25 MG TABLET. PO SCH ×2 (08:41→13:00)
[2019-08-04] MEDS: VANCOMYCIN 125 MG/2.5 ML ORAL SOLUTION. PO SCH ×4 (08:42→21:20)
[2019-08-04] MEDS: FLUTICASONE 50MCG/NASAL SPRAY 16GM BOTTLE. NS SCH (08:45)
[2019-08-04] MEDS: IPRATRPIUM/ALBUTEROL 0.5/2.5MG 3 ML NEBU. NEB SCH ×4 (08:56→19:35)
--- NOTE | 2019-08-04 13:30 | PDOC ---
MILTON AGUILAR GAGE MAKER 08/04/19 1330: CARDIO Progress Notes Date and Time Date of Service 08/04/19 Time of Evaluation 1310 Subjective Subjective: No Chest Pain, No shortness of breath, No Palpitations, Other (right hip pain better today) Vitals Vitals Vital Signs Date Time Temp Pulse Resp B/P (MAP) Pulse Ox O2 Delivery O2 Flow Rate FiO2 08/04/19 11:36 95 Room Air 08/04/19 11:32 99/67 (78) 08/04/19 11:00 98.3 88 20 98.3 Weight Weight [ ] Input and Output Intake and Output Intake and Output0 08/04/19 07:00 Intake Total 1050 ml Output Total 400 ml Balance 650 ml Intake Oral 1050 ml Output Urine Total 400 ml # Voids 7 # Bowel Movements 7 Laboratory Labs Laboratory Tests Test 08/04/19 05:30 White Blood Count 4.5 x10^3/uL (4.0-11.0) Red Blood Count 3.61 x10^6/uL (3.50-5.40) Hemoglobin 11.5 g/dL (12.0-15.5) Hematocrit 32.4 % (36.0-47.0) Mean Corpuscular Volume 90 fL (79-100) Mean Corpuscular Hemoglobin 32 pg (25-35) Mean Corpuscular Hemoglobin Concent 35 g/dL (31-37) Red Cell Distribution Width 14.0 % (11.5-14.5) Platelet Count 122 x10^3/uL (140-400) Neutrophils (%) (Auto) 68 % (31-73) Lymphocytes (%) (Auto) 21 % (24-48) Monocytes (%) (Auto) 11 % (0-9) Eosinophils (%) (Auto) 0 % (0-3) Basophils (%) (Auto) 0 % (0-3) Neutrophils # (Auto) 3.0 x10^3/uL (1.8-7.7) Lymphocytes # (Auto) 1.0 x10^3/uL (1.0-4.8) Monocytes # (Auto) 0.5 x10^3/uL (0.0-1.1) Eosinophils # (Auto) 0.0 x10^3/uL (0.0-0.7) Basophils # (Auto) 0.0 x10^3/uL (0.0-0.2) Heparin Anti-Xa Act, Unfractionated < 0.10 IU/mL (0.30-0.70) Sodium Level 131 mmol/L (136-145) Potassium Level 3.5 mmol/L (3.5-5.1) Chloride Level 95 mmol/L (98-107) Carbon Dioxide Level 27 mmol/L (21-32) Anion Gap 9 (6-14) Blood Urea Nitrogen 16 mg/dL (7-20) Creatinine 0.8 mg/dL (0.6-1.0) Estimated GFR (Cockcroft-Gault) 69.2 BUN/Creatinine Ratio 20 (6-20) Glucose Level 120 mg/dL (70-99) Calcium Level 8.0 mg/dL (8.5-10.1) Total Bilirubin 0.8 mg/dL (0.2-1.0) Aspartate Amino Transf (AST/SGOT) 69 U/L (15-37) Alanine Aminotransferase (ALT/SGPT) 16 U/L (14-59) Alkaline Phosphatase 54 U/L (46-116) Total Protein 5.9 g/dL (6.4-8.2) Albumin 2.8 g/dL (3.4-5.0) Albumin/Globulin Ratio 0.9 (1.0-1.7) Physical Exam HEENT: Neck Supple W Full Motion Chest: Symmetric LUNGS: Clear to Auscultation Heart: irregularly irregular (burst of AFIB RVR) Abdomen: Soft N/T Extremities: No Edema, No Calf Tenderness Neurology: alert, oriented, follow commands Assessment Assessment 1. Fever with UTI/Cdiff colitis with possible sepsis 2. NSTEMI: ? demand ischemia. CP free, peaked trop at 4.9. 3. Cardiomyopathy: EF at 30% with WMA. Appears compensated. ? Takotsubo's 4. Right hip pain: possible spontaneous right iliopsoas hematoma. improved 5. PAFIB: AFIB RVR episodes. currently SR. 5. Hypertension; BP marginal 6. Hyperlipidemia; LDL 45 7. Chronic immunosuppression: on Humira for Crohn's Recommendations Continue ASA, BB convert to long acting Supportive care for now Consider further ischemic workup, possibly as an outpatient. Needs HF optimization if/when BP allows. KENDAL MENESES MD 08/04/19 2222: CARDIO Progress Notes Plan Plan Pt. seen and examined. Agree with above MANUFACTURING TEST ENGINEER note Supportive care for now. MILTON AGUILAR APRN Aug 04, 2019 13:30 KENDAL MENESES MD Aug 04, 2019 22:22
[2019-08-04] MEDS: METOPROLOL SUCC 24HR ER 25 MG TAB.ER.24H. PO SCH (17:31)
[2019-08-04] MEDS: FAMOTIDINE 20 MG TABLET. PO SCH (21:20)
[2019-08-04] MEDS: oxyCODONE IR 5 MG TABLET PO PRN (22:32)
[2019-08-05 03:04] VITALS: BP 93/58
[2019-08-05 05:10] LABS: HEMATOCRIT 30.7 % (36.0-47.0); HEMOGLOBIN 10.8 g/dL (12.0-15.5); RED BLOOD COUNT 3.43 x10^6/uL (3.50-5.40); RED CELL DISTRIBUTION WIDTH 13.9 % (11.5-14.5); WHITE BLOOD COUNT 4.5 x10^3/uL (4.0-11.0)
[2019-08-05 05:14] LABS: CALCIUM 7.8 mg/dL (8.5-10.1); CREATININE 0.8 mg/dL (0.6-1.0); GFR 69.2; POTASSIUM 3.2 mmol/L (3.5-5.1)
[2019-08-05] MEDS: CEFEPIME HCL IV Push 1 GM VIAL. IVP SCH (06:14)
--- NOTE | 2019-08-05 06:42 | PDOC ---
Infectious Disease Note Subjective Subjective Some better yet. Slept well again. Did not feel fever Hip is feeling better Less weak. Stools forming. Has not walked much No Rash and cough is ok and improving ROS ROS o/w neg Vital Sign Vital Signs Vital Signs Date Time Temp Pulse Resp B/P (MAP) Pulse Ox O2 Delivery O2 Flow Rate FiO2 08/05/19 03:04 98.5 88 16 93/58 (70) 93 Room Air 98.5 Physical Exam PHYSICAL EXAM CONSTITUTIONAL: She is in bed and looks well She is cooperative. She is in no acute distress. HEENT: Pupils are equal and reactive. She has normal conjunctivae and oral cavity, which was clear. NECK: Supple. Without JVD. LUNGS: Clear to auscultation. but did cough some HEART: S1, S2. ABDOMEN: Soft, mildly distended. Positive bowel sounds. No guarding, no rebound. EXTREMITIES: Without clubbing, cyanosis or gross edema. NEUROLOGIC: She is alert and oriented. PSYCHIATRIC: Affect is appropriate. Labs Lab Laboratory Tests Test 08/05/19 04:20 White Blood Count 4.5 x10^3/uL (4.0-11.0) Red Blood Count 3.43 x10^6/uL (3.50-5.40) Hemoglobin 10.8 g/dL (12.0-15.5) Hematocrit 30.7 % (36.0-47.0) Mean Corpuscular Volume 90 fL (79-100) Mean Corpuscular Hemoglobin 32 pg (25-35) Mean Corpuscular Hemoglobin Concent 35 g/dL (31-37) Red Cell Distribution Width 13.9 % (11.5-14.5) Platelet Count 116 x10^3/uL (140-400) Sodium Level 131 mmol/L (136-145) Potassium Level 3.2 mmol/L (3.5-5.1) Chloride Level 94 mmol/L (98-107) Carbon Dioxide Level 31 mmol/L (21-32) Anion Gap 6 (6-14) Blood Urea Nitrogen 14 mg/dL (7-20) Creatinine 0.8 mg/dL (0.6-1.0) Estimated GFR (Cockcroft-Gault) 69.2 Glucose Level 109 mg/dL (70-99) Calcium Level 7.8 mg/dL (8.5-10.1) Micro CT IMPRESSION: 1. Focal poorly defined fluid collection without intravenous contrast in the right iliopsoas muscle which does contain a hematocrit level suggesting hematoma. There is mild surrounding inflammation which may be posttraumatic or reactive to secondary infection. 2. Bilateral interstitial opacities may be infectious or posttraumatic. There is a trace right basilar effusion as well. Objective Assessment Fever - looks better. ? hematoma ? hematoma in right iliopsoas - had acute worsening pain 08/03 better today UTI - POA 07/30 Pansensitive Ecoli PCN allergy has tolerated Amox C-diff - last episode 5 years ago Immunosuppression on Humira for crohns. last dose 1 week ago Elevated Troponin - NSTEMI ? Bronchitis - has h/o chronic bronchitis Plan Plan of Care Sputum - neg d/w lab irina 08/04 For now cont po Vanc would treat through 08/21 Discont cefepime and chnage to Cefdinir and treat through 08/08 to complete 7 days for URI Consider OT/PT eval D/w nursing JANET MONTOYA MD Aug 05, 2019 06:42
[2019-08-05 07:00] VITALS: BP 98/60
--- NOTE | 2019-08-05 08:20 | PN ---
DATE: 08/05/2019 SUBJECTIVE: The patient is resting, slightly propped up in bed, in no apparent respiratory distress. She is awake, alert. On questioning her, she stated that her stools are semi-formed and she has had no more pain in her right groin area, has been up and about. Her antibiotic was switched to oral route. She is now on cefdinir 300 mg twice a day. PHYSICAL EXAMINATION: GENERAL: When I examined her, she was pale, but no jaundice, cyanosis or thyromegaly. No jugular venous distension. No lower limb edema. VITAL SIGNS: Her heart rate was 88, blood pressure was 93/58, temperature was 98.5, respiratory rate was 16, and oxygen saturation was 93%. The rest of clinical exam stable and has not really changed. Her intake was 1050, output was 400. LABORATORY DATA: As of this morning, her serum sodium was 131, potassium 3.2, chloride 94, bicarbonate 31, anion gap of 6, BUN 14, creatinine 0.8, estimated GFR was 69 mL per minute. Her glucose 109, calcium was 7.8. Her total bilirubin, AST, ALT, alkaline phosphatase were normal. Total protein was 5.9, albumin was 2.8. White cell count was 4500, hemoglobin 11, hematocrit 31, MCV 90 and platelet count of 116,000. ASSESSMENT: 1. Fever, urinary tract infection, Clostridium difficile colitis. 2. Acute bronchitis versus pneumonia. 3. Chronic immunosuppressive therapy, on Humira for Crohn's disease. 4. Right groin pain due to spontaneous right iliopsoas muscle hematoma. 5. Jov-XZ-lperobs elevation myocardial infarction, although the patient is chest pain free. Her troponin has peaked up to 4.9. 6. Hypertension, however, the patient is actually borderline hypotensive. 7. Cardiomyopathy with ejection fraction of 30%. 8. Hyperlipidemia. 9. Paroxysmal atrial fibrillation, currently in sinus rhythm. PLAN: My plan is obviously to continue the antibiotic both oral cefdinir and oral vancomycin and await the registered public surveyor decision regarding ischemic workup. ANÍBAL HELLER MD DR: BEBETO/alisa JOB#: [id number] / [id number]
[2019-08-05] MEDS: IPRATRPIUM/ALBUTEROL 0.5/2.5MG 3 ML NEBU. NEB SCH ×4 (08:26→20:13)
[2019-08-05] MEDS: LACTOBACILLUS RHAMNOSUS GG 1 CAPSULE. PO SCH ×2 (08:41→21:20)
[2019-08-05] MEDS: CETIRIZINE HCL 10 MG TABLET. PO SCH (08:42)
[2019-08-05] MEDS: ASPIRIN ENTERIC COATED 81 MG TABLET.DR. PO SCH (08:42)
[2019-08-05] MEDS: METOPROLOL SUCC 24HR ER 25 MG TAB.ER.24H. PO SCH (08:42)
[2019-08-05] MEDS: MULTIVITAMIN with MINERAL TABLET. PO SCH (08:42)
[2019-08-05] MEDS: CEFDINIR 300 MG CAPSULE PO SCH ×2 (08:43→21:20)
[2019-08-05] MEDS: FLUTICASONE 50MCG/NASAL SPRAY 16GM BOTTLE. NS SCH (08:45)
[2019-08-05] MEDS: VANCOMYCIN 125 MG/2.5 ML ORAL SOLUTION. PO SCH ×4 (08:50→21:21)
[2019-08-05 11:00] VITALS: BP 86/52
--- NOTE | 2019-08-05 13:12 | NUR ---
SS following up with discharge planning. PT recommended home with home healthcare at discharge. SS met with pt to discuss home healthcare and home healthcare options. Pt reported no preference of company and agreeable to [employer] [facility], ; fax [phone], at discharge. SS will continue to follow for discharge planning.
[2019-08-05] MEDS ORDERED: POTASSIUM CHLORIDE 20 MEQ TABLET.ER. PO ONE (14:30)
[2019-08-05 15:00] VITALS: BP 95/62
--- NOTE | 2019-08-05 17:01 | NUR ---
Per Dr. Campos, he does not plan to cath patient, & patient can go home from his standpoint. Patient is to follow up with Dr. Sandoval at .
[2019-08-05 19:00] VITALS: BP 87/61
[2019-08-05] MEDS: FAMOTIDINE 20 MG TABLET. PO SCH (21:20)
[2019-08-05] MEDS: oxyCODONE IR 5 MG TABLET PO PRN (21:27)
--- NOTE | 2019-08-05 21:58 | PDOC ---
Provider Note Provider Note Case discussed with nursing staff. No acute cardiac concerns. She has classic signs of stress induced CMP She will f/u with Dr. Sandoval at [facility]. Thanks. Pls call with questions. Continue present asa, toprol. BP otherwise marginal. Thanks KENDAL MENESES MD Aug 05, 2019 21:58
[2019-08-05 22:54] VITALS: BP 88/61
[2019-08-06 03:00] VITALS: BP 126/78
--- NOTE | 2019-08-06 03:03 | NUR ---
Was talking to Dr. Campos regarding another Patient's blood pressure, informed him of her blood pressure continuously being low, he said that he is aware of it being low and that it was okay because she was asymptomatic.
[2019-08-06 05:50] LABS: CALCIUM 8.5 mg/dL (8.5-10.1); CREATININE 0.8 mg/dL (0.6-1.0); GFR 69.2; POTASSIUM 3.7 mmol/L (3.5-5.1)
[2019-08-06 07:00] VITALS: BP 92/58
[2019-08-06] MEDS ORDERED: OXYC5CAP PO (07:56)
[2019-08-06] MEDS ORDERED: CEFD300C PO (07:56)
[2019-08-06] MEDS ORDERED: VANC125C3 PO (07:56)
--- NOTE | 2019-08-06 07:59 | SNU/HH DC ---
DISCHARGE WITH HOME HEALTH DISCHARGE INFORMATION: Discharge Date: Aug 06, 2019 Final Diagnosis: stress induced cardiomyopathy UTI C Diff colitis Condition on Discharge: Stable CODE STATUS: Code Status: Full HOME HEALTH: Face to Face: I certify this patient is under my care and that I, or a nurse practitioner or physician's assistant professor of drama working with me, had a face to face encounter that meets the physician face to face encounter requirements with this patient on 08/06/19 Medical Complications: CHF, Other Half-Way For: Medication Management RN For Eval/Treatment: Yes Physical Therapy For: Evalulation/Treatment Occupational Therapy For: Evaluation/Treatment Pt Meets Homebound Status: Extreme weakness w/ amb. POST DISCHARGE ORDERS: Activity Instructions for Disc: Resume previous activity DIET AFTER DISCHARGE: Cardiac CERTIFICATION STATEMENT: Certification Statement: Certification Statement: Based on the above finding, I certify that this patient is confined to the home and needs intermittent shelter care, physical therapy and/or speech therapy, or continues to need occupational therapy.~ This patient is under my care, and I have initiated the establishment of the plan of care.~ This patient will be followed by myself or a community physician who will periodically review the plan of care. Home Meds Active Scripts Oxycodone Hcl (OXYCODONE HCL) 5 Mg Capsule, 5 MG PO PRN Q6HRS PRN for PAIN for 6 Days, #24 TAB 0 Refills Prov:ANÍBAL HELLER MD 08/06/19 Vancomycin Hcl (VANCOMYCIN HCL) 125 Mg Capsule, 1 CAP PO QID for c diff colitis for 15 Days, #60 CAP 0 Refills Prov:ANÍBAL HELLER MD 08/06/19 Cefdinir (CEFDINIR) 300 Mg Capsule, 1 CAP PO BID for uti for 3 Days, #6 CAP Prov:ANÍBAL HELLER MD 08/06/19 Reported Medications Guaifenesin/Codeine Phosphate (GUAIFENESIN AC COUGH SYRUP) 473 Ml Liquid, 10 ML PO PRN Q6HRS PRN for COUGH, #240 ML 08/02/19 Fluticasone Propionate (FLUTICASONE PROPIONATE NASAL SPRAY) 16 Gm [place].susp, 2 SPRAY NS DAILY for allergies, #1 INHALER 11 Refills 08/02/19 Cetirizine Hcl (CETIRIZINE HCL) 10 Mg Tablet, 1 TAB PO DAILY for allergies, #30 TAB 5 Refills 08/02/19 Aspirin (Children's Aspirin) 81 Mg Tab.chew, 81 MG PO DAILY for prophylaxis, TAB.CHEW 08/02/19 Acetaminophen (TYLENOL) 325 Mg Tablet, 2 TAB PO PRN Q6HRS PRN for PAIN, #30 TAB 08/02/19 Lisinopril (LISINOPRIL) 20 Mg Tablet, 1 TAB PO BID, #30 TAB 5 Refills 04/05/16 Balsalazide Disodium (BALSALAZIDE DISODIUM) 750 Mg Capsule, 750 MG PO TID, #3 04/04/16 Ranitidine Hcl (RANITIDINE HCL) 150 Mg Capsule, 1 CAP PO BID, #60 CAP 5 Refills 04/04/16 Multivitamin (MULTIVITAMINS) 1 Each Tablet, 1 TAB PO DAILY, #90 TAB 3 Refills 04/04/16 Simvastatin (SIMVASTATIN) 40 Mg Tablet, 1 TAB PO QHS, #30 TAB 5 Refills 04/04/16 Docusate Sodium (DOCUSATE SODIUM) 100 Mg Capsule, 2 CAP PO DAILY, #30 CAP 04/04/16 Discontinued Reported Medications Multivitamin (MULTIVITAMINS) 1 Each Tablet, 1 TAB PO DAILY for supplement, #90 TAB 3 Refills 08/02/19 Famotidine (FAMOTIDINE) 20 Mg Tablet, 20 MG PO HS for GERD, TAB 08/02/19 Enoxaparin Sodium (LOVENOX) 40 Mg/0.4 Ml Disp.syrin, 40 MG SQ DAILY for ANTI- COAGULANT, DIS.SYR 08/02/19 Carvedilol (CARVEDILOL ) 6.25 Mg Tablet, 6.25 MG PO BIDWMEALS for CARDIAC, TAB 08/02/19 Carvedilol (CARVEDILOL) 25 Mg Tablet, 1 TAB PO BID, #180 TAB 1 Refill 04/04/16 Aspirin (ASPIRIN) 81 Mg Tab.chew, 1 TAB PO DAILY, #30 TAB 3 Refills 04/04/16 ANÍBAL HELLER MD Aug 06, 2019 07:59
[2019-08-06] MEDS: IPRATRPIUM/ALBUTEROL 0.5/2.5MG 3 ML NEBU. NEB SCH (08:00)
[2019-08-06] MEDS: MULTIVITAMIN with MINERAL TABLET. PO SCH (08:46)
[2019-08-06] MEDS: VANCOMYCIN 125 MG/2.5 ML ORAL SOLUTION. PO SCH (08:46)
[2019-08-06] MEDS: ASPIRIN ENTERIC COATED 81 MG TABLET.DR. PO SCH (08:46)
[2019-08-06] MEDS: CEFDINIR 300 MG CAPSULE PO SCH (08:46)
[2019-08-06] MEDS: LACTOBACILLUS RHAMNOSUS GG 1 CAPSULE. PO SCH (08:46)
[2019-08-06] MEDS: CETIRIZINE HCL 10 MG TABLET. PO SCH (08:46)
[2019-08-06] MEDS: FLUTICASONE 50MCG/NASAL SPRAY 16GM BOTTLE. NS SCH (08:47)
[2019-08-06 11:00] VITALS: BP 104/66
[2019-08-06 11:57] VITALS: BP 104/66
[2019-08-06] MEDS: METOPROLOL SUCC 24HR ER 25 MG TAB.ER.24H. PO SCH (11:57)
--- NOTE | 2019-08-06 13:12 | NUR ---
Discharge Note: ALLEN DARNELL Discharge instructions and discharge home medications reviewed with Patient and a copy given. All questions have been answered and understanding verbalized.
--- NOTE | 2019-09-09 12:48 | DS ---
DATE OF DISCHARGE: 08/06/2019 HOSPITAL COURSE: The patient is a 78-year-old female patient who was transferred from [facility] where she was admitted initially with diarrhea and her stool came back positive for C. diff. She has also UTI and was septic. In fact, she was on Levophed. She was treated with IV antibiotic and oral vancomycin and she complained of chest pain. She has two sets of cardiac enzymes and a second troponin was up to 3.974 and therefore, the patient was transferred to [facility] to consult the surgical team, prior to consult the Cardiology team, so she was actually evaluated. Her echocardiogram showed that her systolic function is severely impaired with an ejection fraction of 30%. The distal half of the left ventricular was severely hypokinetic with basal hypokinesis suggestive of an overall stress-induced cardiomyopathy Takotsubo. Doppler and color flow revealed [id number] tricuspid regurgitation with an estimated pulmonary artery pressure of 46 mmHg. There was a trace pericardial effusion. The patient was continued on IV antibiotic and oral vancomycin and as she remained hemodynamically stable, a decision was made to discharge her home to follow with her primary human resources operations specialist at [facility]. The patient was discharged home and initial plan for cardiac catheterization was canceled. PHYSICAL EXAMINATION: GENERAL: On the day of discharge, the patient looked well and was clearly in no apparent respiratory distress, slightly pale, but no jaundice, cyanosis or thyromegaly. No jugular venous distention. No limb edema. VITAL SIGNS: Her heart rate was 77, blood pressure was 104/66, temperature was 97.8, respiratory rate was 18 and oxygen saturation was 97%. The rest of clinical exam is stable. LABORATORY DATA: Showed a white cell count 4500, hemoglobin 11, hematocrit 31, MCV 90 and platelet count of 116,000. Her chemistry showed a serum sodium 134, potassium 3.7, chloride 95, bicarbonate 30, anion gap of 9, BUN 17, creatinine 0.8, estimated GFR was 69 mL per minute. Her glucose 100 and calcium was 8.5. DISCHARGE MEDICATIONS: The patient was discharged home to continue on cefdinir 300 mg twice a day for 3 more days, oxycodone 5 mg every 6 hours, vancomycin 125 mg four times a day for 15 days. She was also discharged on Tylenol 650 mg every 6 hours, aspirin 81 mg once a day, balsalazide disodium 750 mg three times a day, cetirizine 10 mg once a day, Colace 200 mg daily, fluticasone propionate Flonase 1-2 sprays to each nostril daily, guaifenesin plus codeine phosphate cough syrup 10 mL every 6 hours, lisinopril 20 mg twice a day, multivitamin 1 tablet once a day, ranitidine 150 mg twice a day and simvastatin 40 mg at bedtime. FINAL DISCHARGE DIAGNOSES: 1. Fever, urinary tract infection and Clostridium difficile colitis. 2. Acute bronchitis versus pneumonia. 3. Chronic immunosuppressive therapy, on Humira for Crohn's disease. 4. Right groin pain due to spontaneous right iliopsoas muscle hematoma. 5. Non-ST segment elevation myocardial infarction, although the patient is chest pain-free. Her troponin has peaked up to 4.9. 6. Hypertension. 7. 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 8. Hyperlipidemia. 9. Paroxysmal atrial fibrillation, currently in sinus rhythm. ANÍBAL HELLER MD DR: BEBETO/alisa JOB#: [id number] / [id number]
== END 2019-08-06 12:30 | disposition home health service (06) | DRG 871 ==
LOC: 2 SOUTH 05:56
PROVIDERS: ADMIT Internal Medicine; ATTEND Internal Medicine
DX: A41.9 Sepsis, unspecified organism (principal); I21.4 Non-ST elevation (NSTEMI) myocardial infarction; A04.72 Enterocolitis due to Clostridium difficile, not specified as recurrent; I50.40 Unspecified combined systolic (congestive) and diastolic (congestive) heart failure; I42.9 Cardiomyopathy, unspecified; K50.90 Crohn's disease, unspecified, without complications; N39.0 Urinary tract infection, site not specified; E78.5 Hyperlipidemia, unspecified; E86.0 Dehydration; I11.0 Hypertensive heart disease with heart failure; I48.0 Paroxysmal atrial fibrillation; J42 Unspecified chronic bronchitis; K21.9 Gastro-esophageal reflux disease without esophagitis; M15.9 Polyosteoarthritis, unspecified; M81.0 Age-related osteoporosis without current pathological fracture; Z79.82 Long term (current) use of aspirin; Z79.899 Other long term (current) drug therapy; Z82.49 Family history of ischemic heart disease and other diseases of the circulatory system; Z86.19 Personal history of other infectious and parasitic diseases; Z87.11 Personal history of peptic ulcer disease; Z87.440 Personal history of urinary (tract) infections; Z88.0 Allergy status to penicillin; Z90.49 Acquired absence of other specified parts of digestive tract; Z90.710 Acquired absence of both cervix and uterus; Z91.041 Radiographic dye allergy status; Z88.8 Allergy status to other drugs, medicaments and biological substances; Z91.018 Allergy to other foods
CPT/HCPCS: 36415; 74176; 80048; 80053; 80061; 83735; 84484; 85025; 85027; 85520; 85610; 85730; 93005; 93306; 94640; 94760; J0692; J1160; J2185; J2248; J2405; J3010; J7620; G0378